=== PATIENT | female | born 1995 | race African-American/Black ===

== ENCOUNTER 2017-03-03 01:41 | Emergency (ER) | payer SELFPAY ==
[2017-03-03 02:00] VITALS: BP 131/93; PULSE 110; RESP 18; TEMP 98.1; O2SAT 99
[2017-03-03 02:01] VITALS: BP 124/82; PULSE 88; RESP 18; O2SAT 100
[2017-03-03] MEDS ORDERED: TETANUS/DIPHTHERIA TOXOID ADULT 0.5 ML VIAL IM ONE (02:15)
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
== END 2017-03-03 03:10 | disposition home or self-care (01) ==
LOC: NEPE 01:41
DX: S51.811A Laceration without foreign body of right forearm, initial encounter (principal); X99.1XXA Assault by knife, initial encounter; Z23 Encounter for immunization
CPT/HCPCS: 73090; 90471; 90714